=== PATIENT | male | born 1975 | race Caucasian/White ===

== ENCOUNTER 2021-08-10 17:40 | Emergency (ER) | payer MEDICARE ==
[~2021-08-10] VITALS: Ht 188 cm; Wt 109.1 kg
[2021-08-10] MEDS ORDERED: ketorolac trometh. 30mg/ml inj. IV ONE (18:00)
[2021-08-10 18:25] LABS: BASOPHILS % (AUTO) 0.7 % (0-1); EOSINOPHILS # (AUTO) 0.2 X10'3 (0-0.9); EOSINOPHILS % (AUTO) 4.1 % (0-6); HEMATOCRIT 40.6 % (42.0-52.0); HEMOGLOBIN 14.2 g/dl (14.0-17.9); LYMPHOCYTES # (AUTO) 1.3 X10'3 (1.1-4.8); LYMPHOCYTES % (AUTO) 24.6 % (21-51); MEAN CORPUSCULAR HGB CONC 34.9 g/dL (33.0-36.5); MEAN CORPUSCULAR VOLUME 83.1 FL (78-98); MONOCYTES # (AUTO) 0.4 X10'3 (0-0.9); MONOCYTES % (AUTO) 7.5 % (2-12); NEUTROPHILS # (AUTO) 3.4 X10'3 (1.8-7.7); NEUTROPHILS % (AUTO) 63.1 % (42-75); PLATELET COUNT 269 X10'3 (140-440); RED BLOOD COUNT 4.89 X10'6 (4.70-6.10); RED CELL DISTRIBUTION WIDTH 12.7 % (11.5-14.5); WHITE BLOOD COUNT 5.3 X10'3 (4.5-11.0)
[2021-08-10 18:35] LABS: CLARITY,URINE CLEAR (Clear); COLOR,URINE YELLOW (Yellow); GLUCOSE, URINE 250 mg/dl (Neg); KETONES,URINE TRACE mg/dl (Neg); LEUKOCYTE ESTERASE ,URINE NEGATIVE (Neg); NITRITES, URINE NEGATIVE (Neg); OCCULT BLOOD,URINE SMALL (Neg); PH,URINE 5.5 (4.8-8.0); PROTEIN,URINE NEGATIVE (Neg); UROBILINOGEN,URINE 0.2 E.U/dL (0.2-1.0)
[2021-08-10 18:40] LABS: UA COLLECTION TYPE CLN CATCH MIDSTREAM
[2021-08-10 18:50] LABS: BACTERIA,URINE FEW /HPF (Neg); CAL OXALATE CRYSTALS FEW /HPF (NEGATIVE); MUCUS STRANDS FEW /LPF (Neg); SQUAMOUS EPITHELIAL CELL,UR FEW /LPF (FEW); WBC CLUMPS,URINE FEW /HPF (NEGATIVE)
[2021-08-10 19:05] LABS: ALANINE AMINOTRANSFERASE 34 U/L (12-78); ALBUMIN 3.9 G/DL (3.4-5.0); ALBUMIN/GLOBULIN RATIO 1.1 (1.1-1.5); ALKALINE PHOSPHATASE 105 IU/L (46-116); ANION GAP 12 (8-16); ASPARTATE AMINO TRANSFERASE 22 U/L (10-37); BLOOD UREA NITROGEN 12 MG/DL (7-18); BUN/CREATININE RATIO 13.5 (5.4-32.0); CALCIUM 9.6 MG/DL (8.5-10.1); CHLORIDE 105 MMOL/L (99-107); CREATININE 0.89 MG/DL (0.60-1.10); GLUCOSE 195 MG/DL (70-104); POTASSIUM 3.8 MMOL/L (3.5-5.1); SODIUM 142 MMOL/L (135-145); TOTAL CARBON DIOXIDE 24.9 MMOL/L (24-32); TOTAL PROTEIN 7.6 G/DL (6.4-8.2); eGFR > 90 ML/MIN
[2021-08-10 19:08] LABS: LIPASE 70 U/L (73-393)
[2021-08-10] MEDS ORDERED: cephalexin 250mg capsule PO ONE (20:10)
[2021-08-10] MEDS ORDERED: HYDR-3972 PO (20:27)
[2021-08-10] MEDS ORDERED: CEPH-585 PO (20:27)
[2021-08-10 20:40] VITALS: BP 121/91
== END 2021-08-10 20:43 | disposition home or self-care (01) ==
LOC: ER 17:41
DX: N23 Unspecified renal colic (principal); N20.1 Calculus of ureter; N39.0 Urinary tract infection, site not specified; R31.9 Hematuria, unspecified; R11.2 Nausea with vomiting, unspecified; R30.9 Painful micturition, unspecified; E78.00 Pure hypercholesterolemia, unspecified; E11.9 Type 2 diabetes mellitus without complications; Z79.2 Long term (current) use of antibiotics; Z79.899 Other long term (current) drug therapy
CPT/HCPCS: 36415; 74176; 80053; 81001; 83690; 85025; 87088; 96374; 99284; J1885

== ENCOUNTER 2022-10-19 07:50 | Day surgery (SDC) | payer MEDICARE, MEDICAID ==
[~2022-10-19] VITALS: Ht 190.5 cm; Wt 110.0 kg
[2022-10-19] VITALS (9 sets, daily range): BP systolic 128–162; BP diastolic 90–116
[~2022-10-19 07:50] MED LIST: GLIM4TAB7 PO; HYDR-3964 PO; METF-1203 PO; PRAV40TA3 PO; famotidine 20mg tablet PO ONE; ringers solution, lacted 1,000 ML IV SCH; tranexamic acid inj. 1,000 MG in normal saline IV soln 100ML IV ONE
[2022-10-19] MEDS ORDERED: midazolam 1 mg/ML 2ml injection ONE (10:44)
[2022-10-19] MEDS ORDERED: fentaNYL/PF 50MCG/1 ML 2ML syringe ONE ×2 (10:44→11:54)
[2022-10-19] MEDS ORDERED: ringers solution, lacted 1,000 ML IV SCH (10:45)
[2022-10-19] MEDS ORDERED: meperidine/PF 25mg/ml syringe IV PRN ×3 (10:45)
[2022-10-19] MEDS ORDERED: acetaminophen 1,000mg/100ml IV 100 ML IV PRN (10:45)
[2022-10-19] MEDS ORDERED: ondansetron/PF 4mg/2ml inj IV PRN (10:45)
[2022-10-19] MEDS ORDERED: morphine 4 MG/ML inj SYRINge IV PRN (10:45)
[2022-10-19] MEDS ORDERED: hydrALAZINE 20mg/ml inj. IV PRN (10:45)
[2022-10-19] MEDS ORDERED: proCHLORperazine 10 MG/2 ml inj IV PRN (10:45)
[2022-10-19] MEDS ORDERED: morphine 2 MG/ML inj. syringe IV PRN (10:45)
[2022-10-19] MEDS ORDERED: ondansetron/PF 4mg/2ml inj ONE (10:56)
[2022-10-19] MEDS ORDERED: dexamethasone sod phosphate 4mg/ml inj. ONE (10:56)
[2022-10-19] MEDS ORDERED: LIDOcaine 2% (20mg/ml) 5ml vial ONE (10:56)
[2022-10-19] MEDS ORDERED: propofol inj 20 ML IV ONE (10:56)
[2022-10-19] MEDS ORDERED: mupirocin 2% nasal ointment 1gm UD NS ONE (11:05)
[2022-10-19] MEDS ORDERED: LIDOcaine 1% w/EPI 1:100,000 30ml vial (MDV) IJ ONE (11:05)
[2022-10-19] MEDS ORDERED: oxymetazoline 15 ML nasal spray NS ONE (11:06)
[2022-10-19] MEDS ORDERED: labetalol 20mg/4ml (5mg/ml) syringe IV ONE (11:43)
--- NOTE | 2022-10-19 12:32 | NUR ---
Received from OR via , accompanied by Anesthesiologist CHRIS AND OR NURSE and report given by Anesthesiolgist. PT IS DROWSY YET ABLE TO FOLLOW VERBAL COMMANDS. DENIES PAIN OR DISCOMFORT. ANXIOUS APPEARING/RESTLESS. SBP ELEVATED; WILL GIVE LEBATOLOL. NASAL PACKING IN PLACE WITH SOME DRIPPING. Addendum: 10/19/22 at 1407 by Judith Soriano RN Amended: Links added.
[2022-10-19] MEDS: labetalol 20mg/4ml (5mg/ml) syringe IV PRN ×2 (12:43→13:18)
[2022-10-19] MEDS ORDERED: salt irrigation nasal spray 45 ML SPRAY NS PRN (13:30)
--- NOTE | 2022-10-19 14:02 | NUR ---
I HAVE REVIEWED D/C INSTRUCTIONS WITH PATIENT AND THEY HAVE VERBALIZED UNDERSTANDING OF INSTRUCTIONS. PATIENT D/C HOME WITH ALL BELONGINGS AND FAMILY GAVE TRANSPORT Addendum: 10/19/22 at 1408 by Judith Soriano RN Amended: Links added.
[2022-10-19] MEDS ORDERED: oxymetazoline 15 ML nasal spray NS SCH (20:00)
== END 2022-10-19 14:02 | disposition home or self-care (01) ==
LOC: PAS 07:50
PROVIDERS: ATTEND Otolaryngology
DX: J32.8 Other chronic sinusitis (principal); J33.8 Other polyp of sinus; J34.3 Hypertrophy of nasal turbinates; J44.9 Chronic obstructive pulmonary disease, unspecified; E11.9 Type 2 diabetes mellitus without complications; E78.5 Hyperlipidemia, unspecified; F42.9 Obsessive-compulsive disorder, unspecified; F40.10 Social phobia, unspecified; Z20.822 Contact with and (suspected) exposure to COVID-19; Z87.891 Personal history of nicotine dependence; Z98.890 Other specified postprocedural states; Z79.84 Long term (current) use of oral hypoglycemic drugs; Z79.899 Other long term (current) drug therapy
CPT/HCPCS: 31259; 31267; 31276; 61782; 82948; 87811; A6402; C1726; J1100; J2175; J2250; J2405; J2704; J3010; J3490; J7030; J7050; J7120; Z7506; Z7508; Z7512; A4618; A6449; A7000